=== PATIENT | male | born 1945 | race Caucasian/White ===

== ENCOUNTER 2019-03-14 10:47 | Observation (INO) | payer OTHER ==
--- NOTE | 2019-03-14 10:58 | CT ---
EXAM: CT brain without contrast HISTORY: Unresponsiveness. Stroke alert COMPARISON: None TECHNIQUE: Multiple contiguous axial images were obtained and a CT of the brain without contrast. FINDINGS: The brain is normal in morphology and attenuation without focal lesions or confluent areas of infarction. There is no evidence of hydrocephalus, intracranial hemorrhage, or extra-axial fluid collection. The calvarium and overlying soft tissues are unremarkable. The visualized paranasal sinuses and masto id air cells are well aerated. IMPRESSION: No evidence of acute intracranial abnormality Dr. Schultz notified of findings at 10:55 AM on 03/14/2019
--- NOTE | 2019-03-14 11:17 | CT ---
Exam: CTA neck with contrast CTA head with contrast HISTORY: Unresponsiveness with possible stroke COMPARISON: None TECHNIQUE: 1. Multiple contiguous axial images were obtained and a CTA of the neck with contrast. 3-D sagittal a nd coronal MIP reformats were performed. 2. Multiple contiguous axial images were obtained and a CTA of the head with contrast. 3-D sagittal a nd coronal MIP reformats were performed. FINDINGS: CTA NECK: Aortic arch: Normal origin of the carotid arteries from the arch. No significant atherosclerotic dise ase of the subclavian arteries. Right common carotid artery: No significant atherosclerotic disease or narrowing Left common carotid artery: No significant atherosclerotic disease or narrowing Right internal carotid artery: No significant atherosclerotic disease or narrowing per NASCET criteri a Right external carotid artery: No significant atherosclerotic disease or narrowing Left internal carotid artery: Approximately 10% stenosis proximally per NASCET criteria Left external carotid artery: No significant atherosclerotic disease or narrowing Right cervical vertebral artery: No significant atherosclerotic disease or narrowing Left cervical vertebral artery: No significant atherosclerotic disease or narrowing No cervical adenopathy. Emphysematous changes in the lung apices. Degenerative changes in the spine. CTA HEAD: Right intracranial internal carotid artery: Patent without narrowing or occlusion Right anterior cerebral artery: Patent without narrowing or occlusion Right middle cerebral artery: Patent without narrowing or occlusion Left intracranial internal carotid artery: Patent without narrowing or occlusion Left anterior cerebral artery: Patent without narrowing or occlusion Left middle cerebral artery: Patent without narrowing or occlusion No aneurysmal dilatation is seen in the anterior circulation. Right vertebral artery: Patent without narrowing or occlusion Left vertebral artery: Patent without narrowing or occlusion Basilar artery: Patent without narrowing or occlusion The posterior cerebral arteries and cerebellar arteries are patent without narrowing or occlusion. No aneurysmal dilatation is seen in the posterior circulation. IMPRESSION: 1. No significant CTA abnormality of the neck 2. No significant CTA abnormality of the head
--- NOTE | 2019-03-14 11:46 | RAD ---
Portable upright frontal chest radiograph: 03/14/2019 COMPARISON: None HISTORY: Altered mental status, unresponsive patient FINDINGS: There is no pneumothorax or pleural fluid and no focal consolidation or alveolar edema. Hea rt and mediastinal contours are grossly unremarkable. Mild linear density in the left base suggesting volume loss. IMPRESSION: No focal consolidation or alveolar edema.
[2019-03-14 11:49] LABS: #Eosinphils 0.3 thou/uL (0.0-0.7); #Lymphocytes 1.8 thou/uL (1.20-3.40); #Monocytes 0.5 thou/uL (0.11-0.59); %Basophils 0.2 % (0.0-1.0); %Eosinophils 3.1 % (0.0-10.0); %Lymphocytes 20.9 % (21.0-51.0); %Neutrophils 69.9 % (42.0-75.0); Hemoglobin 14.3 g/dL (14.0-18.0); Mean Corpuscular HGB CONC 33.6 g/dL (32.0-36.0); Mean Corpuscular Hemoglobin 30.3 pg (27.0-31.0); Mean Corpuscular Volume 90.3 fL (78.0-98.0); Mean Platelet Volume 7.5 fL (7.4-10.4); Platelet Count 236 thou/uL (130-400); RBC Distribution Width 12.5 % (11.5-14.5); White Blood Cell (WBC) Count 8.5 thou/uL (4.8-10.8)
[2019-03-14 12:17] LABS: Bilirubin Negative (Negative); Blood, Urine Negative (Negative); Clarity CLEAR (Clear); Glucose, Urine (Dipstick) Negative (Negative); Leukocyte Negative (Negative); Nitrite Negative (Negative); Protein, Urine (Dipstick) Negative (Neg-Trace); Specific Gravity, Urine 1.028 (1.002-1.036); Urobilinogen 0.2 mg/dL (0.2-1.0)
[2019-03-14 12:21] LABS: ALT (SGPT) 9 U/L (8-55); AST (SGOT) 15 U/L (5-34); Acetaminophen Less than 6.0 mcg/mL (10.0-30.0); Alcohol Less than 10 mg/dL (Less than 10); Alkaline Phosphatase 67 U/L (40-150); Anion Gap 18 mmol/L (10-20); BUN (Urea Nitrogen) 9 mg/dL (8.4-25.7); Bilirubin, Total 0.4 mg/dL (0.2-1.2); CK (CPK) 75 U/L (30-200); Calc. Creatinine Clearance 0 mL/min (70-130); Calcium 9.4 mg/dL (7.8-10.44); Carbon Dioxide 18 mmol/L (23-31); Chloride 105 mmol/L (98-107); Estimated GFR-MDRD 57; Globulin 3.1 g/dL (2.4-3.5); Glucose 118 mg/dL (83-110); Potassium 3.9 mmol/L (3.5-5.1); Protein, Total 7.1 g/dL (5.8-8.1); Salicylate Less than 8.0 mg/dL (15.0-30.0); Sodium 137 mmol/L (136-145)
[2019-03-14 12:34] LABS: Amphetamine Not Detected (NotDetected); Barbiturates Screen Not Detected (NotDetected); Benzodiazepine Screen Not Detected (NotDetected); Cocaine Metabolite Screen Not Detected (NotDetected); Medtox Control Line Valid? VALID (VALID); Medtox Reader # READER 4; Methadone Not Detected (NotDetected); Methamphetamine Not Detected (NotDetected); Opiate Screen Not Detected (NotDetected); Oxycodone Screen Not Detected (NotDetected); Phencyclidine (PCP) Not Detected (NotDetected); THC/Cannabinoid Screen Not Detected (NotDetected); Tricyclic Screen Not Detected (NotDetected)
[2019-03-14 12:45] LABS: PTT 26.3 SEC (22.9-36.1); Prothrombin Time 13.6 SEC (12.0-14.7)
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
[2019-03-14] MEDS ORDERED: Ondansetron ODT 4 MG TAB SL PRN (14:00)
[2019-03-14] MEDS ORDERED: Ondansetron PF 4 MG/2 ML Vial IVP PRN ×2 (14:00→17:54)
[2019-03-14] MEDS ORDERED: Acetaminophen 325 MG TAB PO PRN (14:00)
[2019-03-14 17:24] VITALS: BMI 29.2
[2019-03-14] MEDS ORDERED: Aspirin 300 MG Suppository PR SCH (17:54)
[2019-03-14] MEDS ORDERED: hydrALAZINE 20 MG/ML VIAL SLOW IVP PRN (17:54)
[2019-03-14] MEDS: Lactated Ringer's 1,000 ML IV SCH (20:12)
[2019-03-15] MEDS ORDERED: Ketorolac Tromethamine 30 MG/ML VIAL IVP SCH (01:45)
[2019-03-15] MEDS: Lactated Ringer's 1,000 ML IV SCH ×2 (01:56→13:15)
[2019-03-15 06:27] LABS: Anion Gap 10 mmol/L (10-20); BUN (Urea Nitrogen) 12 mg/dL (8.4-25.7); Calc. Creatinine Clearance 76 mL/min (70-130); Calcium 8.9 mg/dL (7.8-10.44); Carbon Dioxide 25 mmol/L (23-31); Chloride 105 mmol/L (98-107); Estimated GFR-MDRD 58; Glucose 97 mg/dL (83-110); Potassium 3.9 mmol/L (3.5-5.1); Sodium 136 mmol/L (136-145)
--- NOTE | 2019-03-15 07:39 | PDOC.FM ---
- Subjective Subjective: Pt much more alert this AM, still is non verbal but able to communicate by nodding head. This AM he indicates that he is having substernal CP with radiation to the right of sharp quality. endorses fevers/chills - Objective Vital Signs & Weight: Vital Signs (12 hours) Temp Pulse Resp BP Pulse Ox 03/15/19 04:30 97.7 F 104 H 15 116/74 96 03/15/19 01:38 93 L 03/15/19 00:00 98.8 F 86 14 115/64 91 L 03/14/19 19:54 98.4 F 81 14 130/98 H 96 Weight Weight 97.704 kg I&O: 03/14/19 03/15/19 03/16/19 06:59 06:59 06:59 Intake Total 1200 Output Total 1025 Balance 175 Result Diagrams: 03/14/19 11:04 03/15/19 05:37 Phys Exam - Physical Examination mild distress HEENT: moist MMs, sclera anicteric Neck: supple, full ROM Respiratory: no wheezing, clear to auscultation bilateral Cardiovascular: RRR, no significant murmur Gastrointestinal: soft, non-tender Musculoskeletal: no edema, pulses present shaking all limbs except RLE, non verbal Psychiatric: normal affect Skin: no rash, normal turgor Dx/Plan (1) Altered mental state Code(s): R41.82 - ALTERED MENTAL STATUS, UNSPECIFIED Status: Acute (2) HTN (hypertension) Code(s): I10 - ESSENTIAL (PRIMARY) HYPERTENSION Status: Acute (3) HLD (hyperlipidemia) Code(s): E78.5 - HYPERLIPIDEMIA, UNSPECIFIED Status: Acute (4) Multiple sclerosis Code(s): G35 - MULTIPLE SCLEROSIS Status: Acute - Plan Plan: Altered mental status, unknown cause A- Etiology unclear, stroke vs MS flare vs conversion disoirder vs malingering vs intentional drug overdose. imaging all negative as is labwork thus far. P- continue ASA -atorvastatin starting after swallow study -MRI for MS flare and CVA r/o Chest pain A- atypical CP, EKG normal on admission with negative trop. Likely MSK. P- Will get EKG and repeat trop MS A- baseline unknown but pt is reportedly more verbal normally P- per plan above HTN A- Pt not on home medications and with high BPs P- will allow permissive htn 48hrs then consider home meds HLD -home meds when tolerating PO hx of b12 deficiency anemia -H/H wnl CODE: full. pt has out of hospital DNR but is unable to confirm in hospital DNR Addendum - Attending - Attending Attestation Date/Time: 03/15/19 1033 I personally evaluated the patient and discussed the management with Dr. Gayle. I agree with the History, Examination, Assessment and Plan documented above with any addition or exceptions noted below. The patient is nodding yes and no but still no verbalizing responses. Getting MRI today. Workup so far is negative. Will consult neurology pending mri results.
[2019-03-15] MEDS ORDERED: Prevnar 13-Val Conj/PF 0.5 ML SYRINGE IM ONE (09:00)
[2019-03-15] MEDS: Aspirin 81 mg Enteric Coated Tablet PO SCH (09:24)
[2019-03-15] MEDS: Atorvastatin Calcium 40 MG TAB PO SCH (09:24)
[2019-03-15] MEDS: Enoxaparin Sodium 40 MG/0.4 ML SYRINGE SC SCH (09:24)
--- NOTE | 2019-03-15 12:39 | EKG ---
Test Reason : Blood Pressure : / mmHG Vent. Rate : 092 BPM Atrial Rate : 092 BPM P-R Int : 212 ms QRS Dur : 072 ms QT Int : 366 ms P-R-T Axes : 062 022 047 degrees QTc Int : 452 ms Sinus rhythm with 1st degree A-V block Possible Left atrial enlargement Borderline ECG Confirmed by LINDEN WASHINGTON D.O. ([id number]), order editor SEDA EVANS ([id number]) on 03/15/2019 12:39:20 PM Referred By: Confirmed By:LINDEN WASHINGTON D.O.
--- NOTE | 2019-03-15 13:05 | MRI ---
MRI BRAIN WITH AND WITHOUT IV CONTRAST: HISTORY: Altered mental status. Concern for multiple sclerosis flare. FINDINGS: No restricted diffusion is seen. No evidence of infarct, hemorrhage, mass, midline shift, or abnorma l extraaxial fluid collection is seen. No abnormal postcontrast enhancement is noted. There are a f ew foci of T2 prolongation in the periventricular white matter. There is mucosal disease in the para nasal sinuses. A small amount of fluid is seen in the mastoid air cells. IMPRESSION: No evidence of acute intracranial process or mass. POS: [facility]
[2019-03-15] MEDS: Dextromethorphan Polistirex 30 MG/5 ML (89 ML BOTTLE) PO PRN (20:30)
[2019-03-16] MEDS: Dextromethorphan Polistirex 30 MG/5 ML (89 ML BOTTLE) PO PRN ×3 (01:28→13:56)
[2019-03-16 04:55] LABS: Anion Gap 13 mmol/L (10-20); BUN (Urea Nitrogen) 12 mg/dL (8.4-25.7); Calc. Creatinine Clearance 88 mL/min (70-130); Calcium 8.7 mg/dL (7.8-10.44); Carbon Dioxide 20 mmol/L (23-31); Chloride 106 mmol/L (98-107); Estimated GFR-MDRD 69; Glucose 93 mg/dL (83-110); Potassium 3.9 mmol/L (3.5-5.1); Sodium 135 mmol/L (136-145)
--- NOTE | 2019-03-16 07:56 | PDOC.FM ---
- Subjective Subjective: Pt improved neurologically, he is now verbal. He reports he has been inhaling his food which causes him R sided CP and coughing. No other complaints. - Objective Vital Signs & Weight: Vital Signs (12 hours) Temp Pulse Resp BP Pulse Ox 03/16/19 03:05 98.3 F 88 20 138/77 96 03/15/19 23:16 98.5 F 102 H 20 137/77 92 L Weight Weight 97.704 kg I&O: 03/15/19 03/16/19 03/17/19 06:59 06:59 06:59 Intake Total 1200 860 Output Total 1025 850 Balance 175 10 Result Diagrams: 03/14/19 11:04 03/16/19 04:27 Phys Exam - Physical Examination Constitutional: NAD HEENT: moist MMs, sclera anicteric Neck: supple, full ROM Respiratory: no wheezing inspiratory crackles RLL base Cardiovascular: RRR, no significant murmur Gastrointestinal: soft, non-tender Musculoskeletal: no edema, pulses present Neurological: normal sensation, moves all 4 limbs Psychiatric: normal affect, A&O x 3 Skin: no rash, normal turgor Dx/Plan (1) Altered mental state Code(s): R41.82 - ALTERED MENTAL STATUS, UNSPECIFIED Status: Acute (2) HTN (hypertension) Code(s): I10 - ESSENTIAL (PRIMARY) HYPERTENSION Status: Acute (3) HLD (hyperlipidemia) Code(s): E78.5 - HYPERLIPIDEMIA, UNSPECIFIED Status: Acute (4) Multiple sclerosis Code(s): G35 - MULTIPLE SCLEROSIS Status: Acute - Plan Plan: Altered mental status, unknown cause A- Etiology unclear, likely conversion disoirder vs malingering vs intentional drug overdose. imaging all negative as is labwork thus far. P- DC ASA -home atorvastatin Chest pain A- atypical CP, 2/2 food aspiration, EKGs normal, trop neg x2 P- switch to full liquid diet, speech eval HTN A- Pt not on home medications and with high BPs P- will allow permissive htn 48hrs then consider home meds HLD -home meds MS -MD aware hx of b12 deficiency anemia -H/H wnl Addendum - Attending - Attending Attestation Date/Time: 03/16/19 1002 I personally evaluated the patient and discussed the management with Dr. Gayle. I agree with the History, Examination, Assessment and Plan documented above with any addition or exceptions noted below. Patient is speaking again and is hoarse. Will clarify dietary recommendations with speech therapy. Likely discharge today.
[2019-03-16] MEDS: Aspirin 81 mg Enteric Coated Tablet PO SCH (09:33)
[2019-03-16] MEDS: Atorvastatin Calcium 40 MG TAB PO SCH (09:34)
[2019-03-16] MEDS: Enoxaparin Sodium 40 MG/0.4 ML SYRINGE SC SCH (09:35)
[2019-03-16 16:18] VITALS: TEMP 97.9
[2019-03-16 18:28] VITALS: BP 152/78
--- NOTE | 2019-03-20 08:27 | DIS ---
DATE OF ADMISSION: 03/14/2019 DATE OF DISCHARGE: 03/16/2019 RESIDENT: Paul Gayle MD ADMITTING ATTENDING: Apolinar Cedeno MD DISCHARGE ATTENDING: Kay Reynoso MD PROCEDURES: 1. On 03/14/2019, brain CT, impression, no evidence of intracranial abnormality. 2. On 03/14/2019, CT angio of brain, impression, no significant abnormalities. 3. On 03/14/2019, chest x-ray, impression, no focal consolidation or alveolar edema. 4. On 03/15/2019, brain CT, impression, no evidence of acute intracranial process or mass. CONSULTS: None. DISCHARGE MEDICATIONS: 1. Nitroglycerin 0.4 mg sublingual q.5 minutes p.r.n. 2. Claritin 10 mg p.o. daily. 3. Atorvastatin 20 mg p.o. daily. 4. Omeprazole 20 mg p.o. b.i.d. DISCONTINUED MEDICATIONS: Ranitidine 150 mg p.o. daily. 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 SECONDARY DIAGNOSES: Multiple sclerosis, chest pain, hypertension, hyperlipidemia, B12 deficiency, and anemia. HISTORY OF PRESENT ILLNESS/HOSPITAL COURSE: This is a 73-year-old incarcerated male, who presented to the hospital after being found unresponsive in his cell. The patient was found unresponsive after he had reportedly been under some emotional distress due to reasons that were classified and involved with the long-term system. He was admitted for stroke rule out and had all the appropriate imaging done, all of which were negative. The patient's mental status did however quickly improve. The patient went from unresponsive to physically responsive though with aphasia and then regained speech pattern as well. The patient was found to be at baseline at that point and was only complaining of intermittently inhaling his food over the last few months, and it was thought that this was secondary to his progressing multiple sclerosis. Eventually, the patient was discharged back to the long-term in stable condition. DISPOSITION: Stable. DISCHARGE INSTRUCTIONS: 1. Location: Detention/custodial. 2. Diet: Secondary liquids with mechanical soft foods. 3. Activity: As tolerated. Fall risk with Speech Therapy consult. Speech Therapy recommended. 4. Followup: Follow up with primary care provider in 10 days. Job ID: [id number]
== END 2019-03-16 17:42 ==
LOC: ERS 10:47 → EEVIPCON 10:47 → 2SE 16:42
PROVIDERS: ADMIT Family Medicine; ATTEND Family Medicine
DX: R41.82 Altered mental status, unspecified (principal); G35 Multiple sclerosis; R07.89 Other chest pain; I10 Essential (primary) hypertension; E78.5 Hyperlipidemia, unspecified; D51.9 Vitamin B12 deficiency anemia, unspecified; I44.0 Atrioventricular block, first degree; Z88.0 Allergy status to penicillin; Z79.899 Other long term (current) drug therapy
CPT/HCPCS: 36415; 36416; 70450; 70496; 70498; 70553; 71045; 80048; 80053; 80306; 80307; 81003; 82550; 83735; 84443; 84484; 85025; 85610; 85730; 90471; 90670; 93005; 93010; 96361; 96372; 96374; G0009; G0378; J1650; J1885